=== PATIENT | male | born 1995 | race Caucasian/White ===

== ENCOUNTER 2023-09-20 22:35 | Emergency (ER) | payer BC, MEDICAID ==
[~2023-09-20] VITALS: Ht 180.3 cm; Wt 93.2 kg
[2023-09-21 01:11] VITALS: BP 134/80; PULSE 67; RESP 11; TEMP 97.7; O2SAT 99
== END 2023-09-21 01:13 | disposition home or self-care (01) ==
LOC: ER 22:36
DX: R06.02 Shortness of breath (principal); R05.9 Cough, unspecified; Z88.2 Allergy status to sulfonamides
CPT/HCPCS: 71046; 93005; 99283